=== PATIENT | female | born 1950 | race Caucasian/White ===

== ENCOUNTER 2018-09-09 18:19 | Observation (INO) ==
--- NOTE | 2018-09-09 18:33 | Emergency Department Note ---
Disposition Clinical Impression: Stable angina Disposition: Admitted As Inpatient Condition: Fair Chest Pain HPI - General Chief Complaint: ED Chest Pain Stated Complaint: CP Time Seen by Provider: 09/09/18 18:24 Source: patient, EMS Limitations: no limitations Vital Signs Reviewed: Yes Nursing Notes Reviewed: Yes - History of Present Illness HPI Narrative: Patient presenting with chest pain. Started about 3-1/2 hours ago while at rest watching TV. Was described as retrosternal and a heavy, dull, pressure-like sensation. After about 30 minutes. It radiated through to her back. Was not sharp, stabbing or tearing. No history of aortic aneurysm. States that by the time EMS got there her pain went away. They did not have to administer any medication. Feels okay now. Did not have any numbness, weakness or tingling. No fever or chills. No abdominal pain. Some nausea but no vomiting. No rashes or pain or swelling in her legs Severity scale (1-10): 0 - Related Data Home Medications Medication Instructions Recorded Confirmed RX: Amitriptyline [Elavil] 50 mg PO HS 09/09/18 09/09/18 RX: BuPROPion XL (24 HR) 150 mg PO DAILY 09/09/18 09/09/18 [Wellbutrin Xl] RX: Clindamycin HCl 300 mg PO TID 09/09/18 09/09/18 RX: Glimepiride [Amaryl] 2 mg PO QAM 09/09/18 09/09/18 RX: Levothyroxine [Synthroid] 125 mcg PO QAM 09/09/18 09/09/18 RX: Lisinopril [Zestril] 40 mg PO DAILY 09/09/18 09/09/18 RX: Metoprolol [Lopressor] 50 mg PO BID 09/09/18 09/09/18 RX: Rosuvastatin [Crestor] 20 mg PO HS 09/09/18 09/09/18 RX: Triamterene/Hydrochlorothiazid 1 cap PO QAM 09/09/18 09/09/18 [Dyazide 37.5-25 Capsule] Allergies Allergy/AdvReac Type Severity Reaction Status Date / Time Sulfa (Sulfonamide Allergy Anaphylaxis Verified 06/03/16 07:14 Antibiotics) Review of Systems: As reviewed in the HPI. All other systems reviewed are negative or normal. Chest Pain PMH - Past Medical History Medical history: Reports: diabetes, hyperlipidemia, hypertension, thyroid disease Surgical history: Reports: thyroidectomy Psychiatric history: Reports: anxiety, depression TIMBER BUYER history: Reports: bilateral tubal ligation - Social History Smoking Status: Never smoker Alcohol use: Reports: none Drug use: Reports: none Physical Exam CONSTITUTIONAL: [well appearing, alert and in no acute distress, obese] EYES: [EOMI, clear conjunctiva, PERRLA] HENT: [Normocephalic, atraumatic, moist mucus membranes, normal oropharynx] NECK: [normal inspection, full ROM, trachea midline, no obvious swelling] PULMONARY: [normal lung sounds bilaterally, normal chest rise and fall, no respiratory distress or stridor, no wheezes, no rales, no rhonchi CARDIOVASCULAR: [regular rate, regular rhythm, normal heart sounds, no murmurs, distal extremities are warm and well perfused] GASTROINSTESTINAL: [soft, non-tender, non-rigid, non-distended, no guarding, no rebound, normal bowel sounds] GENITOURINARY/RECTAL: [deferred] NEUROLOGIC: [Alert, oriented x3, normal speech, moves all extremities] EXTREMITIES: [Normal inspection, full ROM, no tenderness, no pedal edema, normal capillary refill] MUSCULOSKELETAL: [no gross deformities, atraumatic] SKIN: [No cyanosis, no diaphoresis, normal color, warm, no rash] PSYCHIATRIC: [slightly anxious] - General Limitations: no limitations General appearance: alert, in no apparent distress Course Course Narrative: patient to be admitted for CP r/o Vital Signs O2 Sat by Pulse Oximetry 99 09/09/18 18:25 Temperature 98.6 F 09/11/18 12:24 Pulse Rate 69 09/11/18 12:24 Respiratory Rate 16 09/11/18 12:24 Blood Pressure 109/70 09/11/18 12:24 O2 Sat by Pulse Oximetry 95 09/11/18 12:24 Oxygen Delivery Oxygen Delivery Room Air Chest Pain - Lab Data Result diagrams: 09/11/18 06:11 09/11/18 06:11 Lab Results 09/09/18 09/09/18 09/09/18 Range/Units 18:36 18:36 18:36 WBC 6.1 (4.3-11.1) K/mcL RBC 4.21 (3.82-4.97) M/mcL Hgb 12.2 (11.5-15.4) g/dL Hct 38.4 (35.3-44.9) % MCV 91.2 (83.0-100.0) fL MCH 29.0 (28.0-33.3) pg MCHC 31.8 (31.6-35.5) g/dL RDW 13.2 (11.5-14.5) % Plt Count 281 (140-400) K/mcL MPV 9.7 (9.4-12.4) fL Immature Gran % 0.3 (0-4) % Seg Neutrophils % 56.2 % Lymphocytes % 29.2 % Monocytes % 8.4 % Eosinophils % 4.9 % Basophils % 1.0 % Neutrophils # 3.4 (1.6-8.9) K/mcL Lymphocytes # 1.8 (0.6-4.6) K/mcL Monocytes # 0.5 (0.0-1.3) K/mcL Eosinophils # 0.3 (0.0-0.6) K/mcL Basophils # 0.1 (0.0-0.2) K/mcL PT 11.4 (9.4-12.1) Seconds INR 1.0 APTT 32.0 (26.0-36.0) Seconds D-Dimer 644 H (0-500) ng/mLFEU Sodium 138 (136-145) mEq/L Potassium 4.3 (3.5-5.1) mEq/L Chloride 103 (98-107) mEq/L Carbon Dioxide 24 (23-29) mEq/L BUN 49 H (8-23) mg/dL Creatinine 1.98 H (0.60-1.20) mg/dL Est GFR ( Amer) 30 L (> 60) Est GFR (Non-Af Amer) 25 L (> 60) BUN/Creatinine Ratio 25 (6-26) Glucose 137 H (70-105) mg/dL Calculated Osmolality 301 H (280-300) Calcium 10.6 H (8.6-10.3) mg/dL Troponin I < 0.03 (< 0.04) ng/mL Attestation Statement - Attestation Attestation: I, Bharat Harper, examined this patient and my medical decision-making was reviewed with the TECHNICIAN BIOLOGICAL HEALTH/PA/Advanced Practice Nurse/Resident Physician. I agree with the documented findings, disposition and treatment plan as described except to the extent set forth below. 68-year-old female presents emergency Department with concerns of chest pain. Patient states she was sitting when she developed acute onset of pressure in the center of her chest. Patient states the symptoms lasted for over 30 minutes. Between 30 minutes to an hour after the onset of her chest pain she developed some mild pain of the L scapula. Patient reports some associated nausea. She denied diaphoresis. Patient has a history of hypertension, hypercholesterol, diabetes. Initial EKG showed normal sinus rhythm with a rate of 78 without evidence of STEMI. QTC of 464, QRS of 98. Initial troponin negative. She had a negative age-adjusted d-dimer. Unlikely aortic dissection as she had equal blood pressures bilateral upper extremity. The pain was not described as a sharp, tearing, stretching pain. The chest pain did not necessarily radiate to the back as she did not have the pain to the back until after having had the chest pain. She is in no pain in the emergency department. Initial troponin negative. Chest x-ray does not show significant change in the size of her mediastinum. Patient has acute renal insufficiency in the emergency department. She will be admitted for further observation.
[2018-09-09 18:51] LABS: Basophils # 0.1 K/mcL (0.0-0.2); Eosinophils # 0.3 K/mcL (0.0-0.6); Eosinophils % 4.9 %; Hematocrit 38.4 % (35.3-44.9); Hemoglobin 12.2 g/dL (11.5-15.4); Immature Granulocytes % 0.3 % (0-4); Lymphocytes # 1.8 K/mcL (0.6-4.6); Lymphocytes % 29.2 %; Mean Corpuscular HGB Conc 31.8 g/dL (31.6-35.5); Mean Corpuscular Volume 91.2 fL (83.0-100.0); Mean Platelet Volume 9.7 fL (9.4-12.4); Monocytes # 0.5 K/mcL (0.0-1.3); Monocytes % 8.4 %; Neutrophils # 3.4 K/mcL (1.6-8.9); Platelet Count 281 K/mcL (140-400); Red Blood Count 4.21 M/mcL (3.82-4.97); Red Cell Distribution Width 13.2 % (11.5-14.5); Segmented Neutrophils % 56.2 %
[2018-09-09 18:56] LABS: Prothrombin Time 11.4 Seconds (9.4-12.1)
[2018-09-09 19:09] LABS: Troponin I < 0.03 ng/mL (< 0.04)
[2018-09-09 19:11] LABS: BUN/Creatinine Ratio 25 (6-26); Blood Urea Nitrogen 49 mg/dL (8-23); Calcium 10.6 mg/dL (8.6-10.3); Carbon Dioxide 24 mEq/L (23-29); Chloride 103 mEq/L (98-107); Glucose 137 mg/dL (70-105); Osmolality,Calculated 301 (280-300); Potassium 4.3 mEq/L (3.5-5.1); Sodium 138 mEq/L (136-145); eGFR For Non-African Americans 25 (> 60)
[2018-09-09] MEDS ORDERED: Aspirin 81 MG TAB.CHEW PO ONE (19:20)
[2018-09-09] MEDS ORDERED: Nitroglycerin 0.4 MG TAB.SUBL SL PRN (19:57)
[2018-09-09] MEDS ORDERED: Naloxone 0.4 MG/ML INJ IVP PRN (19:57)
[2018-09-09] MEDS ORDERED: *HR* Dextrose 50 % in Water (Syg) 50 ML SYRINGE IVP PRN (20:12)
[2018-09-09] MEDS ORDERED: D5% in Water 1,000 ML IVC PRN (20:12)
[2018-09-09] MEDS ORDERED: Dextrose Gel 15 GM/37.5 ML TUBE PO PRN ×2 (20:12)
--- NOTE | 2018-09-09 20:13 | Internal Med History&Physical ---
Date of Encounter: 09/09/18 Time of Encounter: 20:13 Internal Medicine - H&P: HPI Chief complaint: Chest Pain History of present illness: Ms. Washington is a 68 year old female with a past medical history of hypertension, hyperlipidemia, obstructive sleep apnea, hypothyroidism, diabetes and anemia who presented to the ED with a chief complaint of chest pain. Patient reports that around 5:30 in the afternoon while patient was lying on the sofa watching TV, she began having sudden onset substernal heaviness. Symptoms were nonpleuritic, non-positional with no aggravating or alleviating factors. She reports that approximately 30 minutes later she began experiencing back pain between her shoulder blades. She cannot say for sure whether the heaviness in the chest ra diated to her back. She states that she has never had any discomfort in her chest like this before. She denies any associated nausea, vomiting, dizziness, palpitations or shortness of breath. Chest pain eventually resolved prior to arrival to the ED. Of note patient has been bedridden for the past week due to bilateral cellulitis involving both feet. Patient denies any calf swelling. She reports no recent illness. She recently had nerve blocks performed approximately one week ago. Patient does not smoke. She does not drink any alcohol. No reports of family history of heart disease. She states she has had a stress tests approximately 3 years ago. Past Med Surg Social Fam HX - Past Medical History Medical history: diabetes, hyperlipidemia, hypertension, thyroid disease Additional medical history: parathyroid Psychiatric history: anxiety, depression - Past Surgical History Surgical History: thyroidectomy - Social History Smoking Status: Never smoker Smokeless Tobacco Status: No Alcohol use: none Drug use: none Internal Medicine - H&P: Meds Amitriptyline [Elavil] 50 mg PO HS 09/09/18 [History] BuPROPion XL (24 HR) [Wellbutrin XL] 150 mg PO DAILY 09/09/18 [History] Clindamycin HCl 300 mg PO TID 09/09/18 [History] Glimepiride [Amaryl] 2 mg PO QAM 09/09/18 [History] Levothyroxine [Synthroid] 125 mcg PO QAM 09/09/18 [History] Lisinopril [Zestril] 40 mg PO DAILY 09/09/18 [History] Metoprolol [Lopressor] 50 mg PO BID 09/09/18 [History] Olmesartan/Hydrochlorothiazide [Benicar Hct 40-25 mg Tablet] 1 tab PO DAILY 09/09/18 [History] Rosuvastatin [Crestor] 20 mg PO HS 09/09/18 [History] Triamterene/Hydrochlorothiazid [Dyazide 37.5-25 Capsule] 1 cap PO QAM 09/09/18 [History] Allergy/AdvReac Type Severity Reaction Status Date / Time Sulfa (Sulfonamide Allergy Anaphylaxis Verified 06/03/16 07:14 Antibiotics) All Systems PM: A 10-system review of systems was performed and is negative for pertinent findings except as documented above in the HPI. - Constitutional Constitutional: no chills, no fever(s), no night sweats - EENT Eyes: no change in vision, no discharge, no pain, no photophobia Ears: no ear discharge, no ear pain, no tinnitus Nose, mouth and throat: no dysphagia, no nasal discharge, no neck pain, no sore throat - Cardiovascular Cardiovascular ROS IM: no chest pain, no diaphoresis, no dyspnea, no lightheadedness, no palpitations, no syncope - Respiratory Respiratory: no cough, no dyspnea, no wheezing, no excessive phlegm production - Gastrointestinal Gastrointestinal: no abdominal pain, no diarrhea, no hematemesis, no hematochez ia, no melena, no nausea, no vomiting - Genitourinary Genitourinary: no change in urinary stream, no dysuria, no flank pain, no hematuria - Musculoskeletal Musculoskeletal ROS IM: no numbness, no tingling - Integumentary Integumentary IM: no rash, no unusual bruising - Neurological Neurological ROS: no confusion, no convulsions, no focal weakness, no numbness, no tingling, no tremor(s) - Hematologic/Lymphatic Hematologic/Lymphatic: no easy bruising - Constitutional Vitals: Temp Pulse Resp BP Pulse Ox 98.4 F 79 20 131/70 99 09/09/18 18:27 09/09/18 18:27 09/09/18 18:27 09/09/18 18:33 09/09/18 18:27 Exam: General: Alert and oriented 3 lying in bed in no acute distress; pleasant Skin:Normal color, no rash, no lesions. HEENT:EOM, pupils equal, round and reactive. Cardiovascular:Normal S1 & S2, no rubs, murmurs or gallops. No JVD. Pulse regular. Lungs:Normal breath sounds, no wheezes or crackles. Abdomen:Soft, non-tender, no rigidity. Extremities:No deformity, no edema or tenderness, no joint swelling or clubbing. Neurological:Normal cognition and motor skills. Pulses:Carotid and radial pulses normal +2. Rest of the physical exam is non contributory Internal Med - H&P Results - Labs CBC & Chem 7: 09/10/18 00:28 09/10/18 00:28 Labs: Short CBC 09/09/18 Range/Units 18:36 WBC 6.1 (4.3-11.1) K/mcL Hgb 12.2 (11.5-15.4) g/dL Hct 38.4 (35.3-44.9) % Plt Count 281 (140-400) K/mcL Neutrophils # 3.4 (1.6-8.9) K/mcL BMP 09/09/18 18:36 Sodium 138 Potassium 4.3 Chloride 103 Carbon Dioxide 24 BUN 49 H Creatinine 1.98 H Glucose 137 H Calcium 10.6 H Cardiac Enzymes 09/09/18 Range/Units 18:36 Troponin I < 0.03 (< 0.04) ng/mL - Impressions ITS Impressions Chest X-Ray 09/09/18 18:24 IMPRESSION: No acute cardiopulmonary disease. D/ / Camilo Christian MD / Camilo Christian MD Interpreting Provider: Camilo Christian MD - Assessment and plan (1) Chest pain Current Visit: Yes Status: Acute Assessment and plan: Patient is a 68-year-old obese female with multiple risk factors for coronary ar jamel disease including hypertension, diabetes and hyperlipidemia who presents with atypical chest pain occurring while at rest described as substernal heaviness, non-positional, nonpleuritic, nonreproducible associated with back pain. Pain resolved prior to arrival to the ED. Initial troponin was negative. EKG was unremarkable. In the ED a d-dimer was performed which when age- adjusted was not significant. Patient was also found to have equal blood pressures bilaterally in her upper extremities and no evidence of widened mediastinum on chest x-ray to strongly suspect aortic dissection. Due to low suspicion for dissection and PE clinically, and given her JENNIFER, a CT angio was not performed to rule out PE or dissection. Patient received loading dose of aspirin in the ED. At this time patient is chest pain-free, hemodynamically stable, non-tachycardic, 95% on room air. At this time I have low suspicion for PE despite patient being bedridden for one week. Nonetheless, we will obtain a VQ scan. -Trend troponin -Continue telemetry -We will obtain VQ scan to rule out PE -Obtain echocardiogram -Would recommend nuclear stress test, however, even patient's JENNIFER a would appreciate cardiology recommendations in the matter. Qualifiers: Ischemic chest pain type: unspecified angina pectoris type Qualified Code(s): I25.9 - Chronic ischemic heart disease, unspecified (2) Acute kidney injury Current Visit: Yes Status: Acute Assessment and plan: Acute on chronic kidney injury with a creatinine of 1.98. Previous creatinine back in May 2018 was 1.37. Suspect that this is due to chronic hypertension and diabetes. Patient currently on lisinopril and losartan with hydrochlorothiazide. We will hold Brennan and ARB given JENNIFER for now. We will start patient on fluids and recheck creatinine in the morning. (3) Diabetes Current Visit: Yes Status: Acute Assessment and plan: Blood glucose checks. Sliding scale insulin. 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 We will monitor. We will hold patient's lisinopril and losartan for now given her acute kidney injury. Continue with beta nolan. Qualifiers: Hypertension type: essential hypertension Qualified Code(s): I10 - Essential (primary) hypertension (5) DVT prophylaxis Current Visit: Yes Status: Acute Assessment and plan: Subcutaneous heparin - Time Spent With Patient Total time spent is greater than 50% in coordination of care (as documented) at patient's floor/unit and/or counseling patient:
[2018-09-09] MEDS ORDERED: 0.9 % Sodium Chloride 1,000 ML IVC SCH (23:30)
[2018-09-09] MEDS: Insulin LISPRO 300 UNITS/3 ML VIAL SQ SCH (23:34)
[2018-09-09] MEDS: *HR* Heparin 5,000 UNIT/ML VIAL SQ SCH (23:36)
[2018-09-10 00:53] LABS: Basophils # 0.1 K/mcL (0.0-0.2); Basophils % 0.8 %; Eosinophils # 0.2 K/mcL (0.0-0.6); Eosinophils % 3.8 %; Hematocrit 34.7 % (35.3-44.9); Hemoglobin 11.5 g/dL (11.5-15.4); Immature Granulocytes % 0.3 % (0-4); Lymphocytes # 1.8 K/mcL (0.6-4.6); Lymphocytes % 29.7 %; Mean Corpuscular HGB Conc 33.1 g/dL (31.6-35.5); Mean Corpuscular Hemoglobin 29.3 pg (28.0-33.3); Mean Corpuscular Volume 88.5 fL (83.0-100.0); Mean Platelet Volume 9.7 fL (9.4-12.4); Monocytes # 0.4 K/mcL (0.0-1.3); Monocytes % 7.1 %; Neutrophils # 3.5 K/mcL (1.6-8.9); Platelet Count 265 K/mcL (140-400); Red Blood Count 3.92 M/mcL (3.82-4.97); Red Cell Distribution Width 13.4 % (11.5-14.5); Segmented Neutrophils % 58.3 %
[2018-09-10 01:11] LABS: Albumin/Globulin Ratio 1.1 (1.1-2.2); Bilirubin,Total 0.4 mg/dL (0.3-1.0); Calcium 10.6 mg/dL (8.6-10.3); Globulin 3.7 g/dL (2.4-3.5); Magnesium 2.4 mg/dL (1.6-2.6); Potassium 4.4 mEq/L (3.5-5.1); Total Protein 7.7 g/dL (6.4-8.9)
[2018-09-10] MEDS: *HR* Heparin 5,000 UNIT/ML VIAL SQ SCH ×3 (06:36→21:06)
[2018-09-10] MEDS: Insulin LISPRO 300 UNITS/3 ML VIAL SQ SCH ×3 (08:28→15:59)
[2018-09-10] MEDS ORDERED: Perflutren Lipid Microsphere 1.3 ML in 0.9 % Sodium Chloride 8.7 ML IVP ONE (08:36)
[2018-09-10] MEDS ORDERED: Lisinopril 20 MG TABLET PO SCH (09:00)
[2018-09-10] MEDS ORDERED: Losartan/HCTZ 50-12.5 TABLET PO SCH (09:00)
[2018-09-10] MEDS: BuPROPion XL (24 HR) 150 MG TABLET PO SCH (15:21)
--- NOTE | 2018-09-10 15:39 | Internal Med Progress Note ---
Hospitalist Progress Note - Encounter Date of Encounter: 09/10/18 Time of Encounter: 15:36 - Subjective Interval History: Seen and examined at bedside today. Patient denies any shortness of breath or chest pain. Her only complaints this time are of pain in her bilateral feet with ambulation. He reports that this has been occurring since she was diagn osed and treated for cellulitis and early August. - Exam Vitals: Temp Pulse Resp BP Pulse Ox 98.0 F 75 16 120/73 91 09/10/18 14:37 09/10/18 14:37 09/10/18 14:37 09/10/18 14:37 09/10/18 14:37 Exam: PHYSICAL EXAMINATION: GENERAL: The patient is an elderly obese female, NAD, and O 3 HEENT: Head is normocephalic and atraumatic. Extraocular muscles are intact. Pupils are equal, round, and reactive to light and accommodation. NECK: Supple. No carotid bruits. No lymphadenopathy or thyromegaly. LUNGS: Clear to auscultation B/L AP and L. HEART: Regular rate and rhythm, S1, S2 without murmur. ABDOMEN: Soft, nontender, and nondistended. Positive bowel sounds. No hepatosplenomegaly was noted. EXTREMITIES: Without any cyanosis, clubbing, rash, lesions or edema. NEUROLOGIC: Cranial nerves II through XII are grossly intact. PSYCHIATRIC: Appropriate affect, denies SI/HI, without agitation or anxiety SKIN: No ulceration or induration present. Plantar aspect of bilateral feet have dry cracked skin with dry flakes throughout, mild erythema with mild tenderness to palpation - Assessment and Plan (1) Chest pain Current Visit: Yes Status: Resolved Assessment and Plan: Patient is a 68-year-old obese female with multiple risk factors for coronary artery disease including hypertension, diabetes and hyperlipidemia who presents with atypical chest pain occurring while at rest described as substernal heaviness, non-positional, nonpleuritic, nonreproducible associated with back pain. Pain resolved prior to arrival to the ED. Initial troponin was negative. EKG was unremarkable. In the ED a d-dimer was performed which when age-adjusted was not significant. Patient was also found to have equal blood pressures bilaterally in her upper extremities and no evidence of widened mediastinum on chest x-ray to strongly suspect aortic dissection. Due to low suspicion for dissection and PE clinically, and given her JENNIFER, a CT angio was not performed to rule out PE or dissection. Patient received loading dose of aspirin in the ED. At this time patient is chest pain-free, hemodynamically stable, non- tachycardic, 95% on room air. At this time I have low suspicion for PE despite patient being bedridden for one week. Nonetheless, we will obtain a VQ scan. -Trend troponin -Continue telemetry -We will obtain VQ scan to rule out PE -Obtain echocardiogram -Would recommend nuclear stress test, however, even patient's JENNIFER a would appreciate cardiology recommendations in the matter. 09/10--the patient is resting comfortably in bed at this time, NAD. She denies any return of chest pain throughout stay thus far. No events on telemetry, serial troponins negative 3, TTE with preserved EF 65-70%, mild LV ROCKY, mild . We will discuss the patient's case with cardiology in the morning to determine whether or not it would be beneficial for a nuclear stress. She had a VQ scan today was found to be negative for PE. Given the recent V/Q she would not be able to have a stress test for at least 2-3 days. (2) Acute kidney injury Current Visit: Yes Status: Acute Assessment and Plan: Acute on chronic kidney injury with a creatinine of 1.98. This is an increase from baseline renal function with serum creatinine 1.37 and 06/14 Most likely due to chronic hypertension diabetes However patient does note that she has poor oral intake which could also be controlled reading Continue holding BENNETT inhibitor Previous creatinine back in May 2018 was 1.37. Patient is currently prescribed an BENNETT inhibitor and an ARB in the outpatient setting. This is contraindicated on both They are both currently being held at this time. She will not be discharged with both an BENNETT inhibitor and an ARB I will give her an additional 1 L of fluid a gentle rate of 60 mL per hour 0.9% normal saline Continue to avoid nephrotoxins and recheck SCR in the morning (3) Diabetes Current Visit: Yes Status: Acute Assessment and Plan: Poorly controlled diabetes, Blood glucose checks. Sliding scale insulin. (4) Hypertension Current Visit: Yes Status: Acute Assessment and Plan: Blood pressure stable. We will monitor. Holding lisinopril and losartan for now given her acute kidney injury. Continue with beta nolan. (5) DVT prophylaxis Current Visit: Yes Status: Acute Assessment and Plan: Subcutaneous heparin - Time Spent with Patient Total time spent is greater than 50% in coordination of care (as documented) at patient's floor/unit and/or counseling patient: less than 15 minutes Plan of Care Discussed with: patient Internal Medicine: Result - Labs CBC & Chem 7: 09/10/18 00:28 09/10/18 00:28 Labs: Short CBC 09/09/18 09/10/18 Range/Units 18:36 00:28 WBC 6.1 6.1 (4.3-11.1) K/mcL Hgb 12.2 11.5 (11.5-15.4) g/dL Hct 38.4 34.7 L (35.3-44.9) % Plt Count 281 265 (140-400) K/mcL Neutrophils # 3.4 3.5 (1.6-8.9) K/mcL BMP 09/09/18 12 18:36 00:28 Sodium 138 136 Potassium 4.3 4.4 Chloride 103 103 Carbon Dioxide 24 22 L BUN 49 H 48 H Creatinine 1.98 H 1.90 H Glucose 137 H 211 H Calcium 10.6 H 10.6 H Cardiac Enzymes 09/09/18 09/10/18 09/10/18 Range/Units 18:36 00:28 05:56 Troponin I < 0.03 < 0.03 < 0.03 (< 0.04) ng/mL Liver Function 09/10/18 Range/Units 00:28 Total Bilirubin 0.4 (0.3-1.0) mg/dL AST 41 H (13-39) Units/L ALT 31 (7-52) Units/L Alkaline Phosphatase 62 (34-104) Units/L Albumin 4.0 (3.5-5.7) g/dL - ABG Interpretation ABG results: PT/INR, D-dimer PT 11.4 Seconds (9.4-12.1) 09/09/18 18:36 D-Dimer 644 ng/mLFEU (0-500) H 09/09/18 18:36 - Impressions Impressions Chest X-Ray 09/09/18 18:24 IMPRESSION: No acute cardiopulmonary disease. D/ / Camilo Christian MD / Camilo Christian MD Interpreting Provider: Camilo Christian MD Echocardiogram 09/09/18 20:06 Impressions: LVEF 65-70%. Normal LV chamber size, wall thickness and systolic function. Mild left ventricular diastolic dysfunction. Grossly normal right ventricular structure and function. Mild aortic stenosis. Unable to estimate RVSP due to lack of TR jet. Left Ventricular Wall Motion: Rest Echo Findings All wall segments showed normal motion. Findings: Study Quality * Technically adequate exam. ECG Findings * Normal sinus rhythm. Left Ventricle * LVEF 65-70%. * Normal LV chamber size, wall thickness and systolic function. * Mild left ventricular diastolic dysfunction. * Definity echo contrast was used. Right Ventricle * RV not well visualized, grossly normal right ventricular structure and function. Left Atrium * Normal left atrial size. Right Atrium * Normal right atrial size. Interatrial Septum * Interatrial septum not well evaluated. Aortic Valve * Moderately calcified aortic valve leaflets. * Mild aortic stenosis. * No aortic regurgitation. Mitral Valve * Moderate mitral annular calcification * No mitral stenosis. * No mitral regurgitation. Tricuspid Valve * Normal tricuspid valve structure and function. * No tricuspid stenosis. * No tricuspid regurgitation. * Unable to estimate RVSP due to lack of TR jet. * Estimated RA pressure is 3 mmHg. Pulmonic Valve * Pulmonic valve is not well visualized. * No pulmonic stenosis. * No pulmonic regurgitation. Aorta * Normally sized aortic root. Pericardium * The pericardium appears normal. IVC * Normal IVC dimensions and inspiratory collapse. Pulmonary Perfusion Imaging 09/10/18 01:27 IMPRESSION: Low probability for pulmonary embolus. D/ / Dagmar Morel MD / Dagmar Morel MD Interpreting Provider: Dagmar Morel MD Consult Discharge Plan - Plan Referrals: Jesu Vickers DO [Primary Care Provider] - (Your appointnent has been requested, our offices will call you with an appointment time and date) ___ (1) Chest pain Qualifiers: Ischemic chest pain type: unspecified angina pectoris type Qualified Code(s): I25.9 - Chronic ischemic heart disease, unspecified (3) Diabetes Qualifiers: Diabetes mellitus type: type 2 Diabetes mellitus complication status: with unspecified complications Qualified Code(s): E11.8 - Type 2 diabetes mellitus with unspecified complications; Z79.4 - residential (current) use of insulin (4) Hypertension Qualifiers: Hypertension type: essential hypertension Qualified Code(s): I10 - Essential (primary) hypertension
[2018-09-10] MEDS: 0.9 % Sodium Chloride 1,000 ML IVC SCH (16:50)
[2018-09-11] MEDS: *HR* Heparin 5,000 UNIT/ML VIAL SQ SCH (06:03)
[2018-09-11 07:29] LABS: Basophils # 0.1 K/mcL (0.0-0.2); Basophils % 0.9 %; Eosinophils # 0.3 K/mcL (0.0-0.6); Eosinophils % 4.4 %; Hematocrit 34.5 % (35.3-44.9); Hemoglobin 11.1 g/dL (11.5-15.4); Immature Granulocytes % 0.2 % (0-4); Lymphocytes # 2.1 K/mcL (0.6-4.6); Lymphocytes % 37.9 %; Mean Corpuscular HGB Conc 32.2 g/dL (31.6-35.5); Mean Corpuscular Hemoglobin 29.4 pg (28.0-33.3); Mean Corpuscular Volume 91.3 fL (83.0-100.0); Mean Platelet Volume 9.9 fL (9.4-12.4); Monocytes # 0.4 K/mcL (0.0-1.3); Monocytes % 7.6 %; Neutrophils # 2.8 K/mcL (1.6-8.9); Platelet Count 254 K/mcL (140-400); Red Blood Count 3.78 M/mcL (3.82-4.97); Red Cell Distribution Width 13.5 % (11.5-14.5)
[2018-09-11 07:46] LABS: Potassium 4.5 mEq/L (3.5-5.1)
[2018-09-11] MEDS: Insulin LISPRO 300 UNITS/3 ML VIAL SQ SCH ×2 (08:53→12:36)
[2018-09-11] MEDS: BuPROPion XL (24 HR) 150 MG TABLET PO SCH (08:58)
[2018-09-11] MEDS: 0.9 % Sodium Chloride 1,000 ML IVC SCH (08:58)
[2018-09-11 12:26] VITALS: BP 109/70
--- NOTE | 2018-09-11 12:53 | Discharge Summary ---
- NOTES TO OUTPATIENT PROVIDER Notes to Outpatient Provider: Admitted with chest pain, ACS rule out. Also found to have an acute kidney injury. Patient's ECG was without any ST-T wave changes concerning for ischemia and serial troponins were negative 3. Of note she was found to have an elevated d-dimer and subsequently had a VQ scan which was found to be low probability for PE. The patient also chest pain resolved prior to arrival to the ED and she has had no return of these symptoms before. Her case was discussed with cardiology who recommends outpatient follow-up for stress. She would be unable to complete stress for at least 3 days S/P VQ scan. I have discussed these findings the patient as well as plan of care and agrees to outpatient follow-up with cardiology to plan for outpatient stress test. In regards to the acute kidney injury she was found to be on both an BENNETT inhibitor and angiotensin receptor nolan and this is most likely the cause of the acute kidney injury. These were held and renal function is steadily improving. She will be discharged with only an BENNETT inhibitor and is been instructed to follow- up with her PCP regarding further monitoring of renal function. Orders not resulted at time of discharge: Pending orders 09/09/18 18:24 ECG 12 lead ECG [ECG] Stat Date of Encounter: 09/11/18 Time of Encounter: 12:50 - Discharge Diagnosis (1) Chest pain Priority: Primary Status: Resolved Qualifiers: Ischemic chest pain type: unspecified angina pectoris type Qualified Code(s): I25.9 - Chronic ischemic heart disease, unspecified (2) Acute kidney injury Priority: Secondary Status: Acute Assessment and Plan: Most likely due to being on both an BENNETT inhibitor and angiotensin receptor nolan Serum creatinine improving We will discontinue ARB PCP to follow-up with monitoring renal function (3) Diabetes Priority: Secondary Status: Acute Qualifiers: Diabetes mellitus type: type 2 Diabetes mellitus complication status: with unspecified complications Qualified Code(s): E11.8 - Type 2 diabetes mellitus with unspecified complications; Z79.4 - terminal gauger (current) use of insulin (4) Hypertension Priority: Secondary Status: Acute Qualifiers: Hypertension type: essential hypertension Qualified Code(s): I10 - Essential (primary) hypertension (5) DVT prophylaxis Priority: Secondary Status: Acute Hospital course: Ms. Washington is a 68 year old female who presented with concern for substernal chest heaviness with acute onset. This chest heaviness had subsided by the time of arrival to the ED. However she had multiple risk factors including obesity, HTN, HLD, LOLLY, DM and sedentary lifestyle. Serial troponins obtained and found to be negative 3,, ECG without any ST-T wave changes concerning for ischemia. She was noted however to have an elevated d-dimer although when age-adjusted this was not too abnormal. She did undergo VQ scan given her presentation to rule out PE; V/Q was low probability for PE. She was also found to have an acute kidney injury of unclear etiology. However review of medication list reveals that she was on both an BENNETT inhibitor and an angiotensin receptor nolan. It is contraindicated to be on both these medications and this is likely the cause of her acute kidney injury. His medications were held and her renal function did improve and was almost back to baseline at time of DC. I have instructed her to no longer take the ARB/HCTZ but to continue the BENNETT inhibitor and follow with PCP. Given her risk factors and presentation with chest pain I discussed her case with cardiology who agrees that the patient would likely need outpatient follow up for stress test. Request for cardiology follow-up appointment has been made. She has been instructed to return to the ED should her symptoms return. Discharge discussed with: patient, nurse - Time Spent with Patient Total time spent providing and/or coordinating discharge services: Less than 30 minutes - Discharge Medications Home Medications: Amitriptyline [Elavil] 50 mg PO HS 09/09/18 [History] BuPROPion XL (24 HR) [Wellbutrin Xl] 150 mg PO DAILY 09/09/18 [History] Clindamycin HCl 300 mg PO TID 09/09/18 [History] Glimepiride [Amaryl] 2 mg PO QAM 09/09/18 [History] Levothyroxine [Synthroid] 125 mcg PO QAM 09/09/18 [History] Lisinopril [Zestril] 40 mg PO DAILY 09/09/18 [History] Metoprolol [Lopressor] 50 mg PO BID 09/09/18 [History] Rosuvastatin [Crestor] 20 mg PO HS 09/09/18 [History] Triamterene/Hydrochlorothiazid [Dyazide 37.5-25 Capsule] 1 cap PO QAM 09/09/18 [History] Allergies/Adverse Reactions: Allergy/AdvReac Type Severity Reaction Status Date / Time Sulfa (Sulfonamide Allergy Anaphylaxis Verified 06/03/16 07:14 Antibiotics) Date of admission: 09/09/18 20:33 Primary care physician: Jesu Vickers DO Consults: 09/10/18 15:43 Consult to Physical Therapy [CONS] Routine Comment: Evaluate, develop and implement POC Reason for Consult: Difficulty with ambulation Does patient have active BEDREST order?: No Is patient medically & hemodynamically stable?: Yes Patient assessed for mobility or mobilized this visit?: Yes Discharging clinician: Omid Perry Anticipated date of discharge: 09/11/18 - Constitutional Vitals: Temp Pulse Resp BP Pulse Ox 98.6 F 69 16 109/70 95 09/11/18 12:24 09/11/18 12:24 09/11/18 12:24 09/11/18 12:24 09/11/18 12:24 General appearance: Present: A&O X 3 Exam: PHYSICAL EXAMINATION: GENERAL: The patient is an elderly obese female, NAD, and O 3 HEENT: Head is normocephalic and atraumatic. Extraocular muscles are intact. Pupils are equal, round, and reactive to light and accommodation. NECK: Supple. No carotid bruits. No lymphadenopathy or thyromegaly. LUNGS: Clear to auscultation B/L AP and L. HEART: Regular rate and rhythm, S1, S2 without murmur. ABDOMEN: Soft, nontender, and nondistended. Positive bowel sounds. No hepatosplenomegaly was noted. EXTREMITIES: Without any cyanosis, clubbing, rash, lesions or edema. NEUROLOGIC: Cranial nerves II through XII are grossly intact. PSYCHIATRIC: Appropriate affect, denies SI/HI, without agitation or anxiety SKIN: No ulceration or induration present. Plantar aspect of bilateral feet have dry cracked skin with dry flakes throughout, mild erythema with mild tenderness to palpation; tenderness improving to today's exam - Patient Status Disposition: Home, Self-Care Condition: Fair Functional capacity at discharge: uses cane/walker Overall status at discharge: patient is progressing back to baseline - Discharge Instructions Follow Up With: Jesu Vickers DO [Primary Care Provider] - (Your appointnent has been requested, our offices will call you with an appointment time and date) - Diet and Activity Activity: increase activity as tolerated, resume usual activities as tolerated Diet: diabetic diet, low fat, low cholesterol, low salt diet
--- NOTE | 2018-09-12 13:29 | Electrocardiograph Report ---
[address] [place], [place] [address] Test Date: 2018-09-09 Pat Name: Leana Washington Department: EXAM5 Room: 3B Gender: F Technical Assoc: : 1950 Requested By: Bharat Harper Order Number: [id number] Reading MD: Cullen Lucero Measurements Intervals [place] Rate: 78 P: -4 MT: 138 QRS: -3 QRSD: 98 T: 68 QT: 407 QTc: 464 Interpretive Statements Sinus rhythm Possible LVH with secondary repol abnrm Electronically Signed On 09-12-2018 13:27:40 EST by Cullen Lucero
== END 2018-09-11 13:53 | disposition home or self-care (01) ==
LOC: 3BNU 18:19 → EMEROOARM 18:19 → 3BNU 21:08
PROVIDERS: ADMIT Family Medicine; ATTEND Family Medicine